=== PATIENT | female | born 1995 | race Caucasian/White ===

== ENCOUNTER 2016-09-19 06:56 | Emergency (ER) | payer OTHER ==
[~2016-09-19] VITALS: Ht 172.7 cm; Wt 97.5 kg
--- NOTE | ~2016-09-19 | EKG ---
[place] [address] [facility] [place] [address] ELECTROCARDIOGRAM REPORT Name: JONAS ZHANG Room #: [facility] [id number] Admission: 09/19/16 Attend Phys: Discharge: 09/19/16 Date of : [birth year] Report #: [id number] THIS REPORT FOR: //name// [facility] ED Test Date: 2016-09-19 Test Time: 07:04:12 Pat Name: JONAS ZHANG Department: Room: Gender: F Rail Bonder: Kelley LOUIE : 1995 Requested By: Trupti Thompson Order Number: [id number] MD: Rober Martinez Measurements Intervals [place] Rate: 79 P: 20 [place]: 148 QRS: 59 QRSD: 80 T: 42 QT: 367 QTc: 421 Interpretive Statements Sinus rhythm Early repolarization No previous ECG available for comparison Electronically Signed On 09-19-2016 8:13:11 CDT by Rober Martinez [email or web address] <ELECTRONICALLY SIGNED> By: oRber Martinez MD, [facility] 09/19/16 0813 [id number] Rober Martinez MD, FACC /EPI
[2016-09-19 07:27] LABS: HEMATOCRIT 37.4 % (37.0-47.0); HEMOGLOBIN 12.8 gm/dL (12.0-15.0); MCHC 34.1 g/dL (28.0-37.0); RBC 4.56 mil/uL (4.20-5.00); RDW 12.6 % (10.5-14.5); WBC 6.3 thou/uL (4.0-11.0)
[2016-09-19 07:40] LABS: CREATININE 0.6 mg/dL (0.6-1.0); POTASSIUM 3.7 mmol/L (3.5-5.1)
[2016-09-19 07:56] VITALS: BP 109/71
== END 2016-09-19 07:57 | disposition home or self-care (01) ==
LOC: ER 06:56
PROVIDERS: Emergency Medicine
DX: K21.9 Gastro-esophageal reflux disease without esophagitis (principal); Z88.0 Allergy status to penicillin